=== PATIENT | female | born 1995 | race Caucasian/White ===

== ENCOUNTER 2021-12-02 21:49 | Emergency (ER) | payer OTHER ==
[~2021-12-02] VITALS: Ht 157.5 cm; Wt 67.5 kg
[2021-12-02 23:00] LABS: COVID AG,FIA SOURCE NASAL SWAB
[2021-12-02 23:25] LABS: INFLUENZA TYPE A NEGATIVE FOR TYPE A (NEGATIVE); INFLUENZA TYPE B NEGATIVE FOR TYPE B (NEGATIVE)
[2021-12-03] MEDS ORDERED: POLY10DR3 OU (00:43)
[2021-12-03] MEDS ORDERED: AMOX500C2 PO (00:43)
[2021-12-03] MEDS ORDERED: LIDOCAINE/PF 1% 2 ML VIAL IM ONE (00:45)
[2021-12-03] MEDS ORDERED: CefTRIAXone SODIUM 1 GM/VIAL IM ONE (00:45)
[2021-12-03] MEDS ORDERED: AZITHROMYCIN 500 MG TABLET PO ONE (00:45)
[2021-12-03 00:56] VITALS: BP 125/78
== END 2021-12-03 01:03 | disposition home or self-care (01) ==
LOC: EMS 21:57
DX: H66.41 Suppurative otitis media, unspecified, right ear (principal); H10.9 Unspecified conjunctivitis; J02.9 Acute pharyngitis, unspecified; Z20.822 Contact with and (suspected) exposure to COVID-19
CPT/HCPCS: 87426; 87804; 96372; 99283; J0696; J3490; Q9967